=== PATIENT | male | born 1990 | race Asian ===

== ENCOUNTER 2017-03-30 11:30 | Emergency (ER) | payer MEDICAID, OTHER ==
[~2017-03-30] VITALS: Ht 165.1 cm; Wt 50.9 kg
[~2017-03-30 11:30] MED LIST: DIVA500T52 PO; RISP2 PO
[2017-03-30 15:03] VITALS: BP 127/75
== END 2017-03-30 15:11 | disposition home or self-care (01) ==
LOC: EMS 11:32
DX: F15.10 Other stimulant abuse, uncomplicated (principal); F12.10 Cannabis abuse, uncomplicated; F17.200 Nicotine dependence, unspecified, uncomplicated
CPT/HCPCS: 99283; 99406

== ENCOUNTER 2020-03-26 05:00 | Emergency (ER) | payer OTHER ==
[~2020-03-26] VITALS: Ht 162.6 cm; Wt 57.7 kg
[~2020-03-26 05:00] MED LIST changes: -RISP2 PO; +RISP2TAB23 PO
[2020-03-26 05:15] VITALS: BP 136/88
[2020-03-26] MEDS ORDERED: METO25 PO (05:30)
[2020-03-26] MEDS ORDERED: QUET100T PO (05:30)
== END 2020-03-26 06:02 | disposition left against medical advice (07) ==
LOC: EMS 05:00
DX: H57.12 Ocular pain, left eye (principal); Z53.21 Procedure and treatment not carried out due to patient leaving prior to being seen by health care provider

== ENCOUNTER 2020-04-08 22:07 | Inpatient (IN) | payer MEDICAID, OTHER ==
[~2020-04-08] VITALS: Ht 160 cm; Wt 63.6 kg
[~2020-04-08 22:07] MED LIST changes: -DIVA500T52 PO; +METO25 PO; +QUET100T PO; -RISP2TAB23 PO
[2020-04-08] MEDS ORDERED: SODIUM CHLORIDE 0.9% 1,000 ML IV ONE (22:30)
[2020-04-08 22:39] LABS: BASOPHILS % (AUTO) 0.8 % (0.0-2.0); EOSINOPHILS % (AUTO) 0.5 % (1.0-6.0); HEMATOCRIT 39.5 % (41-53); HEMOGLOBIN 13.1 g/dL (13.5-17.5); LYMPHOCYTES # (AUTO) 1.5 K/uL (1.0-4.8); LYMPHOCYTES % (AUTO) 15.5 % (22.0-44.0); MEAN CORPUSCULAR HEMOGLOBIN 31.6 pg (26.0-34.0); MEAN CORPUSCULAR HGB CONC 33.1 G/dL (31.0-37.0); MEAN CORPUSCULAR VOLUME 96 fL (80-100); MONOCYTES # (AUTO) 1.5 K/uL (0.1-1.0); MONOCYTES % (AUTO) 15.4 % (2.0-9.0); NEUTROPHILS # (AUTO) 6.6 K/uL (1.8-7.7); NEUTROPHILS % (AUTO) 67.8 % (40.0-70.0); PLATELET COUNT (AUTO) 274 K/uL (150-450); RED BLOOD CELL COUNT(AUTO) 4.14 MIL/uL (4.50-5.90); RED CELL DISTRIBUTION WIDTH 13.8 % (11.5-14.5)
[2020-04-08 22:48] LABS: ANION GAP 10 mmol/L (8-16); CALCIUM, TOTAL 7.9 mg/dL (8.8-10.5); CARBON DIOXIDE 26 mmol/L (22-29); CHLORIDE 104 mmol/L (98-107); CREATININE 1.21 mg/dL (0.60-1.30); GLOMERULAR FILTR. RATE CALC > 60 mL/min (>60); GLUCOSE,RANDOM 100 mg/dL (70-110); POTASSIUM 3.8 mmol/L (3.5-5.1); SODIUM SERUM 140 mmol/L (136-145); UREA NITROGEN, BLOOD 24 mg/dL (7-18)
[2020-04-08 23:00] LABS: SALICYLATE < 2.8 mg/dL (2.8-20.0)
[2020-04-08 23:05] LABS: AMMONIA 22 umol/L (11-32)
[2020-04-08 23:06] LABS: TROPONIN I < 0.02 ng/mL (0.00-0.05)
[2020-04-08 23:13] LABS: ALANINE AMINOTRANSFERASE 96 U/L (12-78); ALBUMIN 3.7 g/dL (3.4-5.0); ALKALINE PHOSPHATASE 91 U/L (46-116); ASPARTATE AMINOTRANSFERASE 36 U/L (15-37); BILIRUBIN,TOTAL 0.9 mg/dL (0.1-1.0); CREATINE KINASE, TOTAL ONLY 689 U/L (39-308); TOTAL PROTEIN, SERUM 6.3 g/dL (6.4-8.2)
[2020-04-08 23:16] LABS: ACETAMINOPHEN < 2 mcg/mL (10-30)
[2020-04-08 23:25] LABS: GLUCOSE,POINT OF CARE 81 MG/DL (70-110)
[2020-04-08] MEDS ORDERED: GLUCAGON,HUMAN RECOMBINANT 1 MG VIAL IVP ONE (23:30)
[2020-04-08] MEDS ORDERED: RAPID SEQUENCE KIT [RSI] 1 EACH KIT ONE (23:42)
[2020-04-08 23:43] LABS: GLUCOSE,POINT OF CARE 154 MG/DL (70-110)
[2020-04-08] MEDS ORDERED: SUCCINYLCHOLINE CHLORIDE 20 MG/ML 10 ML VIAL ONE ×2 (23:43→23:46)
[2020-04-09] MEDS ORDERED: RAPID SEQUENCE KIT [RSI] 1 EACH KIT ONE (00:07)
[2020-04-09] MEDS ORDERED: SUCCINYLCHOLINE CHLORIDE 20 MG/ML 10 ML VIAL ONE (00:07)
[2020-04-09] MEDS ORDERED: FentaNYL CITRATE-PF 100 MCG/2 ML VIAL IVP ONE (00:45)
[2020-04-09 00:51] LABS: ABG A-A DIFF O2 138.7 mmHg (10-20.0); ABG BASE EXCESS -6.4 mmol/L (-2.0-3.0); ABG CARBOXYHEMOGLOBIN 0.3 % (0.0-1.5); ABG HCO3 20.4 mmol/L (22.0-26.0); ABG METHEMOGLOBIN 0.3 % (0.0-1.5); ABG OXYHEMOGLOBIN 98.4 % (94.0-100.0); ABG PCO2 27 mmHg (35-45); ABG PH 7.435 (7.350-7.450); ABG TOTAL HEMOGLOBIN 12.7 G/dL (12.0-18.0); PO2, ARTERIAL BG 187.2 mmHg (92.0-100.0); SOURCE, BLOOD GAS ARTERIAL; TEMPERATURE, FAHRENHEIT, BG 98.6 FAHREN (96.0-98.6)
[2020-04-09 00:52] LABS: SITE, BLOOD GAS LFT RADIAL
[2020-04-09 00:53] LABS: O2 DEVICE,BLOOD GAS VENTILATOR (ROOM AIR); PEEP,BG 5 cm H2O; VT, ABG 500 ml
[2020-04-09] MEDS ORDERED: NOREPINEPHRINE 4 MG/D5%-WATER 250 ML IV PRN (01:15)
[2020-04-09 01:30] LABS: APPEARANCE,URINE CLEAR (CLEAR); BILIRUBIN,URINE NEGATIVE (NEGATIVE); GLUCOSE, URINE (UA) NEGATIVE (NEGATIVE); KETONES,URINE 15 mg/dL (NEGATIVE); LEUKOCYTE ESTERASE ,URINE NEGATIVE (NEGATIVE); NITRATE,URINE NEGATIVE (NEGATIVE); OCCULT BLOOD,URINE NEGATIVE (NEGATIVE); PROTEIN,URINE NEGATIVE (NEGATIVE); UROBILINOGEN,URINE 0.2 mg/dL (<=1.0)
[2020-04-09] MEDS ORDERED: CALCIUM GLUCONATE 1,000 MG in DEXTROSE 5%-WATER 50 ML IV ONE (01:30)
[2020-04-09] MEDS ORDERED: CALCIUM GLUCONATE 2,000 MG in DEXTROSE 5%-WATER 50 ML IV ONE (01:30)
[2020-04-09] MEDS ORDERED: SODIUM CHLORIDE 0.9% 1,000 ML IV ONE (01:30)
[2020-04-09 01:41] LABS: RBC,URINE None Seen /HPF (0-2); WBC,URINE None Seen /HPF (0-5)
[2020-04-09 01:42] LABS: BACTERIA,URINE None Seen /HPF (None Seen); SQUAMOUS EPITHELIAL CELL,UR Few /LPF (None Seen)
[2020-04-09] MEDS ORDERED: 0.9% SODIUM CHLORIDE 10 ML SYRINGE IVP PRN (01:45)
[2020-04-09] MEDS ORDERED: ONDANSETRON HCL 4 MG/2 ML VIAL IVP PRN (01:45)
[2020-04-09] MEDS ORDERED: ACETAMINOPHEN 325 MG TABLET PO PRN (01:45)
[2020-04-09] MEDS: FentaNYL CITRATE PF 500 MCG in DEXTROSE 5%-WATER 90 ML IV PRN ×7 (01:51→21:32)
[2020-04-09] MEDS ORDERED: INSULIN REGULAR, HUMAN 100 UNITS/ML IVP ONE (02:30)
[2020-04-09] MEDS ORDERED: DEXTROSE 50%-WATER 25 GM/50 ML SYRINGE IVP ONE ×6 (02:30→11:30)
[2020-04-09] MEDS ORDERED: GLUCAGON,HUMAN RECOMBINANT 1 MG VIAL IVP ONE ×4 (02:30→13:30)
[2020-04-09] MEDS ORDERED: ATROPINE SULFATE 0.1 MG/ML 10 ML SYRINGE IVP ONE (02:30)
[2020-04-09 02:57] LABS: GLUCOSE,POINT OF CARE 102 MG/DL (70-110)
[2020-04-09] MEDS: POTASSIUM CHL 10 MEQ/WATER 50 ML IV SCH ×10 (04:28→22:45)
[2020-04-09] MEDS ORDERED: INSULIN REGULAR, HUMAN 100 UNITS in SODIUM CHLORIDE 0.9% 99 ML IV SCH ×2 (05:30)
[2020-04-09 05:37] LABS: GLUCOSE,POINT OF CARE 167 MG/DL (70-110)
[2020-04-09] MEDS: EPINEPHrine 2 MG in DEXTROSE 5%-WATER 248 ML IV PRN ×3 (05:45→19:09)
[2020-04-09] MEDS ORDERED: SODIUM CHLORIDE 154 MEQ in DEXTROSE 10%-WATER 1,000 ML IV ONE (06:00)
[2020-04-09 06:10] LABS: GLUCOSE,POINT OF CARE 99 MG/DL (70-110)
[2020-04-09 06:10] LABS: GLUCOSE,POINT OF CARE 110 MG/DL (70-110)
[2020-04-09 06:46] LABS: ANION GAP 13 mmol/L (8-16); CALCIUM, TOTAL 6.9 mg/dL (8.8-10.5); CARBON DIOXIDE 19 mmol/L (22-29); CHLORIDE 112 mmol/L (98-107); CREATININE 1.05 mg/dL (0.60-1.30); GLOMERULAR FILTR. RATE CALC > 60 mL/min (>60); GLUCOSE,RANDOM 132 mg/dL (70-110); POTASSIUM 3.2 mmol/L (3.5-5.1); SODIUM SERUM 144 mmol/L (136-145); UREA NITROGEN, BLOOD 16 mg/dL (7-18)
[2020-04-09 06:59] LABS: GLUCOSE,POINT OF CARE 127 MG/DL (70-110)
[2020-04-09 07:18] LABS: GLUCOSE,POINT OF CARE 192 MG/DL (70-110)
[2020-04-09 08:17] LABS: GLUCOSE,POINT OF CARE 121 MG/DL (70-110)
[2020-04-09] MEDS: INSULIN REGULAR, HUMAN 100 UNITS in SODIUM CHLORIDE 0.9% 99 ML IV SCH ×12 (08:48→21:01)
[2020-04-09 09:56] LABS: GLUCOSE,POINT OF CARE 97 MG/DL (70-110)
[2020-04-09 09:56] LABS: GLUCOSE,POINT OF CARE 108 MG/DL (70-110)
[2020-04-09 09:56] LABS: GLUCOSE,POINT OF CARE 77 MG/DL (70-110)
[2020-04-09 09:56] LABS: GLUCOSE,POINT OF CARE 80 MG/DL (70-110)
[2020-04-09] MEDS ORDERED: MAGNESIUM SULFATE 2 GM/WATER 50 ML IV ONE (10:00)
[2020-04-09 10:12] LABS: GLUCOSE,POINT OF CARE 69 MG/DL (70-110)
[2020-04-09 10:35] LABS: GLUCOSE,POINT OF CARE 135 MG/DL (70-110)
[2020-04-09 10:35] LABS: GLUCOSE,POINT OF CARE 121 MG/DL (70-110)
[2020-04-09 10:35] LABS: GLUCOSE,POINT OF CARE 127 MG/DL (70-110)
[2020-04-09 10:35] LABS: GLUCOSE,POINT OF CARE 123 MG/DL (70-110)
[2020-04-09 11:05] LABS: GLUCOSE,POINT OF CARE 88 MG/DL (70-110)
[2020-04-09 11:20] LABS: GLUCOSE,POINT OF CARE 80 MG/DL (70-110)
[2020-04-09 11:41] LABS: GLUCOSE,POINT OF CARE 74 MG/DL (70-110)
[2020-04-09 12:15] LABS: GLUCOSE,POINT OF CARE 117 MG/DL (70-110)
[2020-04-09 12:16] LABS: GLUCOSE,POINT OF CARE 138 MG/DL (70-110)
[2020-04-09 12:48] LABS: GLUCOSE,POINT OF CARE 102 MG/DL (70-110)
[2020-04-09 12:48] LABS: GLUCOSE,POINT OF CARE 117 MG/DL (70-110)
[2020-04-09] MEDS ORDERED: DEXTROSE 25%-WATER 2.5 GM/10 ML SYRINGE IVP PRN (13:00)
[2020-04-09 13:05] LABS: GLUCOSE,POINT OF CARE 114 MG/DL (70-110)
[2020-04-09] MEDS: SODIUM CHLORIDE 154 MEQ in DEXTROSE 10%-WATER 1,000 ML IV SCH ×2 (13:15→18:29)
[2020-04-09 15:12] LABS: GLUCOSE,POINT OF CARE 98 MG/DL (70-110)
[2020-04-09 15:12] LABS: GLUCOSE,POINT OF CARE 102 MG/DL (70-110)
[2020-04-09 15:12] LABS: GLUCOSE,POINT OF CARE 80 MG/DL (70-110)
[2020-04-09 15:12] LABS: GLUCOSE,POINT OF CARE 86 MG/DL (70-110)
[2020-04-09] MEDS: DEXTROSE 50%-WATER 25 GM/50 ML SYRINGE IVP PRN ×3 (15:25→22:50)
[2020-04-09] MEDS ORDERED: MIDAZOLAM HCL 2 MG/2 ML VIAL IVP ONE (16:30)
[2020-04-09] MEDS: DEXMEDETOMIDINE HCL 200 MCG in SODIUM CHLORIDE 0.9% 48 ML IV PRN ×2 (16:43→19:55)
[2020-04-09 16:50] LABS: GLUCOSE,POINT OF CARE 99 MG/DL (70-110)
[2020-04-09 17:20] LABS: BASOPHILS % (AUTO) 0.4 % (0.0-2.0); EOSINOPHILS % (AUTO) 0.9 % (1.0-6.0); HEMATOCRIT 38.7 % (41-53); HEMOGLOBIN 12.5 g/dL (13.5-17.5); LYMPHOCYTES # (AUTO) 1.9 K/uL (1.0-4.8); LYMPHOCYTES % (AUTO) 14.7 % (22.0-44.0); MEAN CORPUSCULAR HEMOGLOBIN 32.2 pg (26.0-34.0); MEAN CORPUSCULAR HGB CONC 32.4 G/dL (31.0-37.0); MEAN CORPUSCULAR VOLUME 99 fL (80-100); MONOCYTES # (AUTO) 1.8 K/uL (0.1-1.0); MONOCYTES % (AUTO) 13.5 % (2.0-9.0); NEUTROPHILS # (AUTO) 9.3 K/uL (1.8-7.7); NEUTROPHILS % (AUTO) 70.5 % (40.0-70.0); PLATELET COUNT (AUTO) 151 K/uL (150-450); RED CELL DISTRIBUTION WIDTH 14.5 % (11.5-14.5)
[2020-04-09 17:36] LABS: ALANINE AMINOTRANSFERASE 71 U/L (12-78); ALBUMIN 2.7 g/dL (3.4-5.0); ALKALINE PHOSPHATASE 73 U/L (46-116); ANION GAP 12 mmol/L (8-16); ASPARTATE AMINOTRANSFERASE 30 U/L (15-37); BILIRUBIN,TOTAL 0.5 mg/dL (0.1-1.0); CALCIUM, TOTAL 6.5 mg/dL (8.8-10.5); CARBON DIOXIDE 18 mmol/L (22-29); CHLORIDE 109 mmol/L (98-107); CREATININE 0.88 mg/dL (0.60-1.30); GLOMERULAR FILTR. RATE CALC > 60 mL/min (>60); GLUCOSE,RANDOM 91 mg/dL (70-110); SODIUM SERUM 139 mmol/L (136-145); TOTAL PROTEIN, SERUM 5.1 g/dL (6.4-8.2); UREA NITROGEN, BLOOD 8 mg/dL (7-18)
[2020-04-09 17:49] LABS: GLUCOSE,POINT OF CARE 88 MG/DL (70-110)
[2020-04-09 17:49] LABS: GLUCOSE,POINT OF CARE 86 MG/DL (70-110)
[2020-04-09 17:53] LABS: POTASSIUM 2.8 mmol/L (3.5-5.1)
[2020-04-09 18:18] LABS: GLUCOSE,POINT OF CARE 85 MG/DL (70-110)
[2020-04-09 19:08] LABS: GLUCOSE,POINT OF CARE 123 MG/DL (70-110)
[2020-04-09 19:28] LABS: ANION GAP 10 mmol/L (8-16); CALCIUM, TOTAL 6.4 mg/dL (8.8-10.5); CARBON DIOXIDE 21 mmol/L (22-29); CHLORIDE 108 mmol/L (98-107); CREATININE 0.94 mg/dL (0.60-1.30); GLOMERULAR FILTR. RATE CALC > 60 mL/min (>60); GLUCOSE,RANDOM 111 mg/dL (70-110); SODIUM SERUM 139 mmol/L (136-145); UREA NITROGEN, BLOOD 7 mg/dL (7-18)
[2020-04-09 19:32] LABS: POTASSIUM 2.7 mmol/L (3.5-5.1)
[2020-04-09] MEDS ORDERED: POTASSIUM CHL 10 MEQ/WATER 50 ML IV ONE (19:45)
[2020-04-09] MEDS ORDERED: POTASSIUM CHL 10 MEQ/WATER 50 ML IV PRN (19:45)
[2020-04-09 20:14] LABS: ANION GAP 11 mmol/L (8-16); CALCIUM, TOTAL 6.2 mg/dL (8.8-10.5); CARBON DIOXIDE 19 mmol/L (22-29); CHLORIDE 107 mmol/L (98-107); CREATININE 0.82 mg/dL (0.60-1.30); GLOMERULAR FILTR. RATE CALC > 60 mL/min (>60); GLUCOSE,RANDOM 94 mg/dL (70-110); SODIUM SERUM 137 mmol/L (136-145); UREA NITROGEN, BLOOD 5 mg/dL (7-18)
[2020-04-09 20:39] LABS: GLUCOSE,POINT OF CARE 117 MG/DL (70-110)
[2020-04-09] MEDS: WATER IV SCH (21:11)
[2020-04-09] MEDS: SODIUM CHLORIDE IV SCH (21:11)
[2020-04-09] MEDS: POTASSIUM CHLORIDE IV SCH (21:11)
[2020-04-09] MEDS: DEXTROSE 10% IV SCH (21:11)
[2020-04-09 21:47] LABS: ANION GAP 8 mmol/L (8-16); CALCIUM, TOTAL 6.3 mg/dL (8.8-10.5); CARBON DIOXIDE 24 mmol/L (22-29); CHLORIDE 111 mmol/L (98-107); CREATININE 0.79 mg/dL (0.60-1.30); GLOMERULAR FILTR. RATE CALC > 60 mL/min (>60); GLUCOSE,RANDOM 77 mg/dL (70-110); SODIUM SERUM 143 mmol/L (136-145); UREA NITROGEN, BLOOD 5 mg/dL (7-18)
[2020-04-09 21:50] LABS: POTASSIUM 2.9 mmol/L (3.5-5.1)
[2020-04-09 22:18] LABS: GLUCOSE,POINT OF CARE 79 MG/DL (70-110)
[2020-04-09 22:18] LABS: GLUCOSE,POINT OF CARE 122 MG/DL (70-110)
[2020-04-09 22:18] LABS: GLUCOSE,POINT OF CARE 103 MG/DL (70-110)
[2020-04-09] MEDS ORDERED: POTASSIUM CHLORIDE 10% 40 MEQ/30 ML LIQUID UDCUP NG ONE (22:30)
[2020-04-09] MEDS ORDERED: POTASSIUM CHLORIDE 10% 40 MEQ/30 ML LIQUID UDCUP GT ONE (23:10)
[2020-04-09 23:15] LABS: CREATINE KINASE, TOTAL ONLY 684 U/L (39-308); PHOSPHORUS 1.7 mg/dL (2.5-4.9)
[2020-04-09 23:21] LABS: AMPHET/METH SCREEN,URINE POSITIVE (NEGATIVE); BARBITURATE SCREEN, URINE NEGATIVE (NEGATIVE); BENZODIAZEPINES SCREEN,URINE NEGATIVE (NEGATIVE); CANNABINOID SCREEN,URINE NEGATIVE (NEGATIVE); COCAINE SCREEN,URINE NEGATIVE (NEGATIVE); METHADONE SCREEN, URINE NEGATIVE (NEGATIVE); OPIATE SCREEN,URINE NEGATIVE (NEGATIVE)
[2020-04-09 23:23] LABS: GLUCOSE,POINT OF CARE 87 MG/DL (70-110)
[2020-04-09 23:23] LABS: GLUCOSE,POINT OF CARE 134 MG/DL (70-110)
[2020-04-09 23:23] LABS: PHENCYCLIDINE SCREEN,URINE NEGATIVE (NEGATIVE)
[2020-04-10 01:03] LABS: GLUCOSE,POINT OF CARE 65 MG/DL (70-110)
[2020-04-10] MEDS: DEXTROSE 10% IV SCH ×3 (01:31→05:59)
[2020-04-10] MEDS: SODIUM CHLORIDE IV SCH ×3 (01:31→05:59)
[2020-04-10] MEDS: POTASSIUM CHLORIDE IV SCH ×3 (01:31→05:59)
[2020-04-10] MEDS: WATER IV SCH ×3 (01:31→05:59)
[2020-04-10 02:25] LABS: ANION GAP 8 mmol/L (8-16); CALCIUM, TOTAL 6.3 mg/dL (8.8-10.5); CARBON DIOXIDE 21 mmol/L (22-29); CHLORIDE 106 mmol/L (98-107); GLOMERULAR FILTR. RATE CALC > 60 mL/min (>60); SODIUM SERUM 135 mmol/L (136-145); UREA NITROGEN, BLOOD 3 mg/dL (7-18)
[2020-04-10 02:26] LABS: GLUCOSE,RANDOM 206 mg/dL (70-110); POTASSIUM 4.8 mmol/L (3.5-5.1)
[2020-04-10 03:54] LABS: GLUCOSE,POINT OF CARE 145 MG/DL (70-110)
[2020-04-10 05:24] LABS: GLUCOSE,POINT OF CARE 99 MG/DL (70-110)
[2020-04-10 05:24] LABS: GLUCOSE,POINT OF CARE 103 MG/DL (70-110)
[2020-04-10] MEDS ORDERED: CALCIUM CARBONATE 500 MG CHEWABLE TABLET CHEW ONE (05:45)
[2020-04-10] MEDS ORDERED: SODIUM,POTASSIUM PHOSPHATES POWDER PACKET PO ONE (06:00)
[2020-04-10] MEDS ORDERED: MAGNESIUM OXIDE 400 MG TABLET PO ONE (06:00)
[2020-04-10] MEDS ORDERED: ZOLPIDEM TARTRATE 10 MG TABLET PO PRN (09:30)
[2020-04-10] MEDS: HALOPERIDOL 5 MG TABLET PO PRN ×3 (12:05→20:45)
[2020-04-10] MEDS ORDERED: PNEUMOCOCCAL VACCINE POLYVALENT 0.5 ML VIAL [PPSV23] IM ONE (12:15)
[2020-04-10 12:30] VITALS: BP 143/87
[2020-04-10] MEDS: LITHIUM CARBONATE 300 MG CAPSULE PO SCH (16:14)
[2020-04-10 19:26] VITALS: BP 142/96
[2020-04-10] MEDS: QUEtiapine FUMARATE 100 MG TABLET PO SCH (20:44)
[2020-04-11] MEDS: LITHIUM CARBONATE 300 MG CAPSULE PO SCH ×2 (08:32→16:35)
[2020-04-11 08:52] VITALS: BP 131/73
[2020-04-11 10:29] LABS: BASOPHILS % (AUTO) 0.8 % (0.0-2.0); EOSINOPHILS % (AUTO) 3.3 % (1.0-6.0); HEMATOCRIT 41.3 % (41-53); HEMOGLOBIN 13.8 g/dL (13.5-17.5); LYMPHOCYTES # (AUTO) 0.9 K/uL (1.0-4.8); MEAN CORPUSCULAR HEMOGLOBIN 32.1 pg (26.0-34.0); MEAN CORPUSCULAR HGB CONC 33.5 G/dL (31.0-37.0); MEAN CORPUSCULAR VOLUME 96 fL (80-100); MONOCYTES # (AUTO) 0.8 K/uL (0.1-1.0); MONOCYTES % (AUTO) 11.5 % (2.0-9.0); NEUTROPHILS # (AUTO) 4.9 K/uL (1.8-7.7); NEUTROPHILS % (AUTO) 71.4 % (40.0-70.0); PLATELET COUNT (AUTO) 235 K/uL (150-450); RED BLOOD CELL COUNT(AUTO) 4.31 MIL/uL (4.50-5.90); RED CELL DISTRIBUTION WIDTH 13.8 % (11.5-14.5)
[2020-04-11 10:47] LABS: ANION GAP 8 mmol/L (8-16); CALCIUM, TOTAL 8.4 mg/dL (8.8-10.5); CARBON DIOXIDE 28 mmol/L (22-29); CHLORIDE 103 mmol/L (98-107); CREATININE 1.05 mg/dL (0.60-1.30); GLOMERULAR FILTR. RATE CALC > 60 mL/min (>60); GLUCOSE,RANDOM 119 mg/dL (70-110); POTASSIUM 3.8 mmol/L (3.5-5.1); SODIUM SERUM 139 mmol/L (136-145); UREA NITROGEN, BLOOD 9 mg/dL (7-18)
[2020-04-11 10:52] LABS: ALANINE AMINOTRANSFERASE 81 U/L (12-78); ALKALINE PHOSPHATASE 92 U/L (46-116); ASPARTATE AMINOTRANSFERASE 41 U/L (15-37); BILIRUBIN,TOTAL 0.7 mg/dL (0.1-1.0); TOTAL PROTEIN, SERUM 6.5 g/dL (6.4-8.2)
[2020-04-11] MEDS: LORazepam 2 MG TABLET PO PRN (16:14)
[2020-04-11 16:16] VITALS: BP 140/94
[2020-04-11] MEDS: QUEtiapine FUMARATE 100 MG TABLET PO SCH (21:32)
[2020-04-12] MEDS: LITHIUM CARBONATE 300 MG CAPSULE PO SCH ×2 (08:37→16:16)
[2020-04-12] MEDS: LORazepam 2 MG TABLET PO PRN ×2 (08:37→15:37)
[2020-04-12] MEDS: OLANZapine 5 MG TABLET PO SCH ×2 (08:37→16:18)
[2020-04-12 10:18] VITALS: BP 132/91
[2020-04-12] MEDS: HALOPERIDOL 5 MG TABLET PO PRN ×2 (15:35→20:49)
[2020-04-12 16:37] VITALS: BP 140/85
[2020-04-12 20:35] VITALS: BP 139/84
[2020-04-12] MEDS: QUEtiapine FUMARATE 100 MG TABLET PO SCH (20:49)
[2020-04-13 09:19] VITALS: BP 144/84
[2020-04-13] MEDS: OLANZapine 5 MG TABLET PO SCH (09:30)
[2020-04-13] MEDS: LITHIUM CARBONATE 300 MG CAPSULE PO SCH (09:30)
[2020-04-13] MEDS ORDERED: LITH300C3 PO (14:34)
[2020-04-13] MEDS ORDERED: OLAN5TAB40 PO (14:34)
== END 2020-04-13 15:15 | disposition home or self-care (01) | DRG 885 ==
LOC: EMS 22:15 → 3EI 04-10 09:28 → 3EC 04-10 13:00
PROVIDERS: ADMIT Psychiatry & Neurology Psychiatry; ATTEND Psychiatry & Neurology Psychiatry
DX: F25.0 Schizoaffective disorder, bipolar type (principal); F41.9 Anxiety disorder, unspecified; I10 Essential (primary) hypertension; F15.10 Other stimulant abuse, uncomplicated; E83.51 Hypocalcemia; I95.9 Hypotension, unspecified; Z79.899 Other long term (current) drug therapy
CPT/HCPCS: 31500; 36556; 82805; 82948; 83735; 84100; 85379; 87081; 93005; 94003; 99291; 99292; G0480; G0481; J0171; J0330; J0610; J1610; J1815; J2250; J3010; J3475; J3480; J7050; J7060; J7131

== ENCOUNTER 2021-07-19 15:15 | Emergency (ER) | payer MEDICAID, OTHER ==
[~2021-07-19] VITALS: Ht 162.6 cm; Wt 59.1 kg
[~2021-07-19 15:15] MED LIST changes: +LITH300C3 PO; -METO25 PO; +OLAN5TAB94 PO
[2021-07-19 15:42] VITALS: BP 142/86
[2021-07-19] MEDS ORDERED: LIDOCAINE 1% 10 ML VIAL PERC ONE (16:15)
== END 2021-07-19 17:06 | disposition home or self-care (01) ==
LOC: EMS 15:15
DX: S01.511A Laceration without foreign body of lip, initial encounter (principal); Z79.899 Other long term (current) drug therapy; F17.210 Nicotine dependence, cigarettes, uncomplicated; F12.90 Cannabis use, unspecified, uncomplicated; F20.9 Schizophrenia, unspecified; X58.XXXA Exposure to other specified factors, initial encounter; Y93.89 Activity, other specified; Y92.89 Other specified places as the place of occurrence of the external cause; Y99.8 Other external cause status
CPT/HCPCS: 12011; 99283; J3490

== ENCOUNTER 2021-07-28 23:48 | Inpatient (IN) | payer MEDICAID, OTHER ==
[~2021-07-28] VITALS: Ht 162.6 cm; Wt 75.0 kg
[2021-07-29] MEDS ORDERED: LORazepam 1 MG TABLET PO PRN (01:00)
[2021-07-29] MEDS ORDERED: HALOPERIDOL 5 MG TABLET PO PRN (01:00)
[2021-07-29] MEDS ORDERED: ZOLPIDEM TARTRATE 10 MG TABLET PO PRN (01:00)
[2021-07-29 01:55] LABS: BASOPHILS % (AUTO) 0.9 % (0.0-2.0); EOSINOPHILS % (AUTO) 1.9 % (1.0-6.0); HEMATOCRIT 44.6 % (41-53); HEMOGLOBIN 14.8 g/dL (13.5-17.5); LYMPHOCYTES # (AUTO) 1.6 K/uL (1.0-4.8); LYMPHOCYTES % (AUTO) 17.1 % (22.0-44.0); MEAN CORPUSCULAR HEMOGLOBIN 31.9 pg (26.0-34.0); MEAN CORPUSCULAR HGB CONC 33.2 G/dL (31.0-37.0); MEAN CORPUSCULAR VOLUME 96 fL (80-100); MONOCYTES # (AUTO) 0.9 K/uL (0.1-1.0); MONOCYTES % (AUTO) 10.1 % (2.0-9.0); NEUTROPHILS # (AUTO) 6.5 K/uL (1.8-7.7); PLATELET COUNT (AUTO) 347 K/uL (150-450); RED BLOOD CELL COUNT(AUTO) 4.64 MIL/uL (4.50-5.90); RED CELL DISTRIBUTION WIDTH 13.8 % (11.5-14.5)
[2021-07-29] MEDS ORDERED: LORazepam 2 MG/ML VIAL ONE (02:05)
[2021-07-29] MEDS ORDERED: HALOPERIDOL LACTATE 5 MG/ML VIAL ONE (02:05)
[2021-07-29] MEDS ORDERED: DiphenhydrAMINE HCL 50 MG/ML VIAL ONE (02:05)
[2021-07-29 02:07] LABS: ANION GAP 10 mmol/L (8-16); CALCIUM, TOTAL 8.9 mg/dL (8.8-10.5); CARBON DIOXIDE 29 mmol/L (22-29); CHLORIDE 107 mmol/L (98-107); CREATININE 1.06 mg/dL (0.60-1.30); GLOMERULAR FILTR. RATE CALC > 60 mL/min (>60); GLUCOSE,RANDOM 107 mg/dL (70-110); POTASSIUM 4.1 mmol/L (3.5-5.1); SODIUM SERUM 146 mmol/L (136-145); UREA NITROGEN, BLOOD 16 mg/dL (7-18)
[2021-07-29 02:13] LABS: ALANINE AMINOTRANSFERASE 36 U/L (12-78); ALBUMIN 4.4 g/dL (3.4-5.0); ALKALINE PHOSPHATASE 128 U/L (46-116); ASPARTATE AMINOTRANSFERASE 35 U/L (15-37); BILIRUBIN,TOTAL 0.5 mg/dL (0.1-1.0); LITHIUM < 0.20 mmol/L (0.60-1.20); TOTAL PROTEIN, SERUM 7.8 g/dL (6.4-8.2)
[2021-07-29] MEDS ORDERED: LORazepam 2 MG TABLET ONE (02:13)
[2021-07-29] MEDS ORDERED: DiphenhydrAMINE HCL 50 MG CAPSULE ONE (02:14)
[2021-07-29 02:29] LABS: COVID AG,FIA SOURCE NASOPHARYNGEAL
[2021-07-29] MEDS ORDERED: LORazepam 2 MG/ML VIAL IM ONE (02:30)
[2021-07-29] MEDS ORDERED: DiphenhydrAMINE HCL 50 MG/ML VIAL IM ONE (02:30)
[2021-07-29] MEDS ORDERED: HALOPERIDOL LACTATE 5 MG/ML VIAL IM ONE (02:30)
[2021-07-29 02:44] LABS: AMPHET/METH SCREEN,URINE POSITIVE (NEGATIVE); BARBITURATE SCREEN, URINE NEGATIVE (NEGATIVE); BENZODIAZEPINES SCREEN,URINE NEGATIVE (NEGATIVE); CANNABINOID SCREEN,URINE NEGATIVE (NEGATIVE); COCAINE SCREEN,URINE NEGATIVE (NEGATIVE); METHADONE SCREEN, URINE NEGATIVE (NEGATIVE); OPIATE SCREEN,URINE NEGATIVE (NEGATIVE)
[2021-07-29 02:51] LABS: PHENCYCLIDINE SCREEN,URINE NEGATIVE (NEGATIVE)
[2021-07-29] MEDS ORDERED: INFLUENZA VIRUS VACCINE QVS 2021-22 (6MO+)/PF 60 MCG/0.5 ML SYRINGE IM. ONE (04:15)
[2021-07-29 06:08] VITALS: BP 115/65
[2021-07-29 08:41] VITALS: BP 118/70
[2021-07-29 16:15] VITALS: BP 106/80
[2021-07-29] MEDS: LITHIUM CARBONATE 300 MG CAPSULE PO SCH (17:00)
[2021-07-29] MEDS: OLANZapine 5 MG RAPDIS TABLET PO SCH (20:51)
[2021-07-30 01:27] VITALS: BP 112/68
[2021-07-30 05:20] LABS: CHOL/HDL RATIO 2.5 (4.2-7.3); CHOLESTEROL 136 mg/dL (131-200); HDL CHOLESTEROL 54 mg/dL (40-60); LDL CHOL (CALC.) 67 mg/dL (0-130); TRIGLYCERIDES 75 mg/dL (15-150)
[2021-07-30] MEDS: LITHIUM CARBONATE 300 MG CAPSULE PO SCH ×2 (08:12→16:50)
[2021-07-30 08:28] VITALS: BP 124/84
[2021-07-30 16:14] VITALS: BP 136/88
[2021-07-30] MEDS: OLANZapine 5 MG RAPDIS TABLET PO SCH (20:13)
[2021-07-31] MEDS: PENICILLIN V POTASSIUM 500 MG TABLET PO SCH ×3 (00:10→12:30)
[2021-07-31 00:17] VITALS: BP 117/76
[2021-07-31] MEDS: LITHIUM CARBONATE 300 MG CAPSULE PO SCH (08:04)
[2021-07-31 08:30] VITALS: BP 121/86
[2021-07-31] MEDS ORDERED: OLAN5TAB94 PO (14:57)
== END 2021-07-31 18:42 | disposition home or self-care (01) | DRG 750 ==
LOC: EMS 23:48 → B3A 07-29 02:16
PROVIDERS: ADMIT Psychiatry & Neurology Psychiatry; ATTEND Psychiatry & Neurology Psychiatry
DX: F20.0 Paranoid schizophrenia (principal); F19.10 Other psychoactive substance abuse, uncomplicated; F41.9 Anxiety disorder, unspecified; K59.00 Constipation, unspecified; G47.00 Insomnia, unspecified; Z20.822 Contact with and (suspected) exposure to COVID-19; Z72.0 Tobacco use; Z71.6 Tobacco abuse counseling
CPT/HCPCS: 80053; 80061; 80178; 85025; 90686; 99291; G0480; J1200; J1630; J2060